=== PATIENT | male | born 1945 | race Caucasian/White ===

== ENCOUNTER 2021-03-04 15:23 | Outpatient (CLI) | payer MEDICARE, SELFPAY ==
[2021-03-04 16:18] LABS: Basophils Absolute Auto 0.1 K/mm3 (0.0-0.1); Basophils Percent Auto 0.5 % (0.2-1.2); Eosinophils Percent Auto 0.4 % (0-4.4); Immature Granulocyte Absolute 0.13 K/mm3 (0.00-0.031); Immature Granulocyte Percent A 1.2 % (0-0.5); Lymphocytes Absolute Auto 2.49 K/mm3 (0.9-3.2); Lymphocytes Percent Auto 23.3 % (18.3-44.2); Mean Corpuscular HGB Conc 33.3 g/dl (32-36); Mean Corpuscular Hemoglobin 31.2 pg (26-34); Mean Corpuscular Volume 93.5 fl (80-100); Monocytes Absolute Auto 0.8 K/mm3 (0.1-0.6); Neutrophils Absolute Auto 7.2 K/mm3 (1.3-6.7); Neutrophils Percent Auto 67.6 % (45.5-73.1); Platelet Count Result 170 k/mm3 (150-375); Red Blood Count 4.17 M/mm3 (4.6-6.20); Red Cell Distribution Width 13.2 % (11.5-14.5); White Blood Count 10.7 K/mm3 (4.5-10.0)
[2021-03-04 16:28] LABS: Alanine Aminotransferase 35 U/L (4-50); Albumin Level 4.8 g/dL (3.5-5.1); Alkaline Phosphatase 64 U/L (38-126); Anion Gap 14 mmol/L (8-16); Aspartate Amino Transferase 28 U/L (17-59); Bilirubin,Total 0.7 mg/dL (0.2-1.3); Blood Urea Nitrogen 15 mg/dL (9-20); Calcium 9.6 mg/dL (8.4-10.2); Carbon Dioxide 25 mmol/L (22-30); Chloride 100 mmol/L (98-107); Estimated Glomerular Filt Rate > 60; Glucose 184 mg/dL (65-110); Potassium 4.3 mmol/L (3.4-5.0); Sodium 139 mmol/L (137-145)
[2021-03-04 16:30] LABS: Add Urine Microscopic? YES; Appearance Urine Clear (Clear); Bacteria Urine Trace /hpf; Bilirubin Urine Negative (Negative); Blood Urine Negative (Negative); Color Urine Yellow (Yellow); Glucose Urine UA Negative (Negative); Ketones Urine Negative (Negative); Leukocyte Esterase Ur 1+ LEU/UL (Negative); Mucus Urine Rare /lpf; Nitrate Urine Negative (Negative); Protein Urine 1+ mg/dL (Negative); RBC Urine 0-2 /hpf (0-2); Specific Grav Ur 1.015 (1.001-1.035); Squamous Epithelial Cell Urine Occasional /hpf (Few); Urobilinogen Urine Negative mg/dL (<2.0)
== END 2021-03-04 15:24 | disposition home or self-care (01) ==
LOC: ANHLAB 15:28
PROVIDERS: PCP Internal Medicine; Visit Provider Internal Medicine
DX: M06.9 Rheumatoid arthritis, unspecified (principal); M35.3 Polymyalgia rheumatica; Z71.89 Other specified counseling; Z79.899 Other long term (current) drug therapy; Z11.59 Encounter for screening for other viral diseases
CPT/HCPCS: 36415; 80053; 81001; 85025

== ENCOUNTER 2021-03-27 13:14 | Outpatient (CLI) | payer MEDICARE, SELFPAY ==
--- NOTE | ~2021-03-27 | XR_ITS ---
EXAMINATION: HAND-BEAU ARTHRITIS 3+VIEWS DATE: 03/27/2021 13:51 INDICATION: Unspecified osteoarthritis at the bilateral hands TECHNIQUE: Posteroanterior, lateral, and oblique views of the left and of the right hands as well as a ballcatchers view of both hands were obtained. COMPARISON: None. FINDINGS: Normal alignment at the bilateral hands. No fracture. 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 This is severe at the bilateral first carpometacarpal joints and bilateral second and third distal interphalangeal joints and the left second proximal interphalangeal joint. Moderate osteoarthritis at many of the rem aining interphalangeal joints and mild osteoarthritis at the bilateral wrist and triscaphe joints. Th ere are multiple scattered primarily juxta articular erosions with thin sclerotic margins at the bila teral hands and wrists. Several of these demonstrate well-defined overhanging edges which can be most clearly seen at the radial ulnar sides of the head of the right second middle phalanx with appearanc e suspicious for gout. IMPRESSION: 1. Typical distribution of relatively symmetric moderate to severe polyarticular osteoarthritis at th e bilateral hands as detailed above. 2. Multiple erosions with corticated margins at the bilateral hands and wrists with appearance suspic ious for gout. Reviewed, dictated and finalized at location A. IMPRESSION: 1. Typical distribution of relatively symmetric moderate to severe polyarticula r osteoarthritis at the bilateral hands as detailed above. 2. Multiple erosions with corticated margins at the bilateral hands and wrists with appearance suspicious for gout.
--- NOTE | ~2021-03-27 | XR_ITS ---
EXAMINATION: XR sacroiliac joints min 3V DATE: 03/27/2021 13:51 INDICATION: Polymyalgia rheumatica TECHNIQUE: AP and left and right oblique views of the bilateral sacroiliac joints were obtained. COMPARISON: None. FINDINGS: Alignment is normal. No fracture. Sacral arches are intact. Bilateral sacral iliac joint spaces appea r normal and symmetric with no erosions or subarticular sclerosis. Moderate to severe lower lumbar sp ondylosis. Atherosclerotic calcific lesions along the bilateral common femoral arteries. IMPRESSION: 1. Moderate to severe lumbar spondylosis. 2. Unremarkable bilateral sacroiliac joints. Reviewed, dictated and finalized at location A.
== END 2021-03-27 13:15 | disposition home or self-care (01) ==
LOC: ANHIMG 13:16
PROVIDERS: PCP Internal Medicine; Visit Provider Internal Medicine
DX: M35.3 Polymyalgia rheumatica (principal); M47.816 Spondylosis without myelopathy or radiculopathy, lumbar region; M19.042 Primary osteoarthritis, left hand; M19.041 Primary osteoarthritis, right hand
CPT/HCPCS: 72202; 73130

== ENCOUNTER 2021-07-06 16:20 | Outpatient (CLI) | payer MEDICARE, SELFPAY ==
[2021-07-06 16:47] LABS: Hematocrit 44.2 % (42.0-52.0); Hemoglobin 14.5 g/dL (14.0-18.0); Mean Corpuscular HGB Conc 32.8 g/dl (32-36); Mean Corpuscular Hemoglobin 30.9 pg (26-34); Mean Platelet Volume 11.7 fl (7.4-10.4); Platelet Count Result 165 k/mm3 (150-375); Red Cell Distribution Width 13.1 % (11.5-14.5); White Blood Count 12.1 K/mm3 (4.5-10.0)
[2021-07-06 17:10] LABS: Alanine Aminotransferase 25 U/L (4-50); Albumin Level 4.9 g/dL (3.5-5.1); Alkaline Phosphatase 73 U/L (38-126); Anion Gap 10 mmol/L (8-16); Aspartate Amino Transferase 23 U/L (17-59); Bilirubin,Total 0.8 mg/dL (0.2-1.3); Blood Urea Nitrogen 19 mg/dL (9-20); CRP 0.6 mg/dL (<1.0); Carbon Dioxide 26 mmol/L (22-30); Chloride 102 mmol/L (98-107); Creatine Kinase 27 U/L (55-170); Estimated Glomerular Filt Rate > 60; Glucose 170 mg/dL (65-110); Potassium 4.7 mmol/L (3.4-5.0); Sodium 138 mmol/L (137-145)
[2021-07-06 17:39] LABS: Erythrocyte Sedimentation Rate 54 mm/hr (0-20)
[2021-07-08 14:26] LABS: Aldolase 3.5 U/L (<=8.1)
== END 2021-07-06 16:21 | disposition home or self-care (01) ==
LOC: ANHLAB 16:24
PROVIDERS: PCP Internal Medicine; Visit Provider Internal Medicine
DX: M35.3 Polymyalgia rheumatica (principal); M19.90 Unspecified osteoarthritis, unspecified site; M25.9 Joint disorder, unspecified
CPT/HCPCS: 36415; 80053; 82085; 82550; 85027; 85652; 86140

== ENCOUNTER 2021-09-16 14:08 | Outpatient (CLI) | payer MEDICARE, SELFPAY ==
[2021-09-16 14:45] LABS: Hematocrit 43.1 % (42.0-52.0); Mean Corpuscular HGB Conc 32.5 g/dl (32-36); Mean Corpuscular Hemoglobin 31.6 pg (26-34); Mean Corpuscular Volume 97.3 fl (80-100); Mean Platelet Volume 11.4 fl (7.4-10.4); Platelet Count Result 216 k/mm3 (150-375); Red Blood Count 4.43 M/mm3 (4.6-6.20); Red Cell Distribution Width 14.1 % (11.5-14.5); White Blood Count 12.6 K/mm3 (4.5-10.0)
[2021-09-16 14:48] LABS: Alanine Aminotransferase 47 U/L (4-50); Albumin Level 4.6 g/dL (3.5-5.1); Alkaline Phosphatase 79 U/L (38-126); Anion Gap 12 mmol/L (8-16); Aspartate Amino Transferase 42 U/L (17-59); Bilirubin,Total 0.8 mg/dL (0.2-1.3); Blood Urea Nitrogen 16 mg/dL (9-20); CRP 0.6 mg/dL (<1.0); Calcium 9.8 mg/dL (8.4-10.2); Carbon Dioxide 25 mmol/L (22-30); Chloride 102 mmol/L (98-107); Estimated Glomerular Filt Rate > 60; Glucose 167 mg/dL (65-110); Potassium 4.3 mmol/L (3.4-5.0); Sodium 139 mmol/L (137-145)
[2021-09-16 15:35] LABS: Erythrocyte Sedimentation Rate 37 mm/hr (0-20)
== END 2021-09-16 14:09 | disposition home or self-care (01) ==
LOC: ANHLAB 14:15
PROVIDERS: PCP Internal Medicine; Visit Provider Internal Medicine
DX: M19.90 Unspecified osteoarthritis, unspecified site (principal); M35.3 Polymyalgia rheumatica
CPT/HCPCS: 36415; 80053; 85027; 85652; 86140

== ENCOUNTER 2022-02-25 14:24 | Outpatient (CLI) | payer MEDICARE, SELFPAY ==
[2022-02-25 14:46] LABS: Hemoglobin 12.6 g/dL (14.0-18.0); Mean Corpuscular HGB Conc 32.3 g/dl (32-36); Mean Corpuscular Hemoglobin 30.6 pg (26-34); Mean Corpuscular Volume 94.7 fl (80-100); Mean Platelet Volume 11.7 fl (7.4-10.4); Platelet Count Result 190 k/mm3 (150-375); Red Blood Count 4.12 M/mm3 (4.6-6.20); Red Cell Distribution Width 12.9 % (11.5-14.5)
[2022-02-25 15:02] LABS: Alanine Aminotransferase 26 U/L (6-50); Albumin Level 4.7 g/dL (3.5-5.1); Alkaline Phosphatase 89 U/L (38-126); Anion Gap 13 mmol/L (8-16); Aspartate Amino Transferase 23 U/L (17-59); Bilirubin,Total 0.6 mg/dL (0.2-1.3); Blood Urea Nitrogen 22 mg/dL (9-20); CRP 0.7 mg/dL (<1.0); Calcium 10.2 mg/dL (8.4-10.2); Carbon Dioxide 21 mmol/L (22-30); Chloride 105 mmol/L (98-107); Estimated Glomerular Filt Rate > 60; Glucose 149 mg/dL (65-110); Potassium 4.6 mmol/L (3.4-5.0); Sodium 139 mmol/L (137-145)
[2022-02-25 15:20] LABS: Erythrocyte Sedimentation Rate 39 mm/hr (0-20)
[2022-02-25 16:23] LABS: Appearance Urine Slightly Cloudy (Clear); Bilirubin Urine Negative (Negative); Blood Urine Negative (Negative); Color Urine Yellow (Yellow); Glucose Urine UA Negative (Negative); Ketones Urine Negative (Negative); Leukocyte Esterase Ur Negative LEU/UL (NEGATIVE); Nitrate Urine Negative (Negative); Protein Urine Negative (Negative); Specific Grav Ur >= 1.030 (1.001-1.035); Urobilinogen Urine 0.2 mg/dL (<2.0); pH Urine 5.5 (5.0-9.0)
[2022-02-25 16:30] LABS: Bacteria Urine Trace /hpf; Mucus Urine Rare /lpf; RBC Urine 0-2 /hpf (0-2); Squamous Epithelial Cell Urine Rare /hpf (Few); WBC Urine 0-3 /hpf (0-3)
[2022-02-25 16:34] LABS: Add Urine Microscopic? YES
== END 2022-02-25 14:25 | disposition home or self-care (01) ==
PROVIDERS: PCP Internal Medicine; Visit Provider Internal Medicine
DX: M35.3 Polymyalgia rheumatica (principal); M19.90 Unspecified osteoarthritis, unspecified site
CPT/HCPCS: 36415; 80053; 81001; 85027; 85652; 86140